=== PATIENT | female | born 1930 | race Caucasian/White ===

== ENCOUNTER → 2016-09-11 | Outpatient (CLI) | payer MEDICARE, OTHER ==
[~2016-09-11] MED LIST: ACETAMINOPHEN PO; ACTOS15 MG PO; ATACAND; BP MED; DIOVAN HCT 1601 EACH PO; ELIQUIS2.5 MG PO; KEFLEX500 M2 PO; LANTUS SOL100 UNIT/1 SUBQ; LANTUS100 U/ML; LOPRESSOR PO; METFORMIN; METFORMIN HCL500 M3 PO; MOBIC PO; NOVOLOG100 U/ML SUBQ; PACERONE PO; PROTONIX PO; VANTIN200 MG PO; ZOCOR20 MG PO; [UNRECOGNIZED DRUG - REMARK]
[2016-09-11 09:32] LABS: CALCIUM SERUM 9.1 mg/dL (8.4-10.2); CREATININE SERUM 0.8 mg/dL (0.6-1.4); GLOM FILT RATE Estimated 67.8 mL/min (>60); POTASSIUM 3.8 mmol/L (3.5-5.1)
== END | disposition home or self-care (01) ==
LOC: CLAB 08:08
PROVIDERS: Internal Medicine Endocrinology, Diabetes & Metabolism
DX: E11.65 Type 2 diabetes mellitus with hyperglycemia (principal); Z79.4 Long term (current) use of insulin
CPT/HCPCS: 36415; 80048; 83036

== ENCOUNTER 2016-11-10 22:47 | Inpatient (IN) | payer MEDICARE, BC ==
--- NOTE | ~2016-11-10 | DS ---
Unit #: [id number] #: [id number] Patient: YANNICK CLEARY [id number] [address] [address] [id number] [place] MR#: [id number] NAME: YANNICK CLEARY ROOM: 562 Age: 86 Sex: F Admission Date: 11/11/2016 : 1930 Discharge Date: Attending Physician: Daniella Padilla M.D. Primary Care Physician: Chris Glass M.D. DISCHARGE SUMMARY DISCHARGE DIAGNOSES 1. Hypoglycemia. 2. Diabetes mellitus type 2, uncontrolled. 3. Urinary tract infection with Gram-negative rods. 4. Hypertension. 5. Mild hyponatremia. 6. Toxic metabolic encephalopathy secondary to hypoglycemia: Not sure if she has history of dementia. CONSULTATION None. PROCEDURES None. LAB DATA Urine culture is growing Gram-negative rods. Glucose 197, creatinine 1.0, sodium 132, WBC 14.4. ALLERGIES Sulfa. DISCHARGE MEDICATIONS 1. Diovan with hydrochlorothiazide 160/125 mg p.o. daily. 2. Zocor 20 mg daily. 3. Lantus 10 units subcu at bedtime. 4. NovoLog sliding scale low dose. 5. Mobic 7.5 p.o. daily. 6. Protonix 40 daily. 7. Keflex 500 three times daily for three days. HOSPITALIZATION COURSE 86-year-old admitted because of low blood sugars. Hypoglycemia secondary to multiple medications and poor p.o. intake: Currently, sugars are high. I discontinued her metformin and Actos. Continue with Lantus and follow with PCP. Diabetes mellitus type 2, uncontrolled with hyperglycemia: Currently, she came with hypoglycemia on admission. Continue with Lantus. Urinary tract infection with Gram-negative rods: Patient received Rocephin. Continue with Keflex. Please note that patient has sulfa Unit #: [id number] #: [id number] Patient: YANNICK CLEARY allergy and I cannot give nitrofurantoin and ciprofloxacin because of resistance. Discharge home. Follow with family physician in one week time. Dictated by... Sho Mcclain/huong TD: 11/12/2016 11:32 JOB #: [id number] DISCHARGE SUMMARY Page 1 of 1 X Daniella Padilla MD DISCHARGE SUMMARY
--- NOTE | ~2016-11-10 | HP ---
Unit #: [id number] #: [id number] Patient: YANNICK CLEARY [id number] [address] [address] [id number] I MR#: [id number] NAME: YANNICK CLEARY ROOM: 562 Age: 86 Sex: F Admission Date: 11/11/2016 : 1930 Attending Physician: Daniella Padilla M.D. Primary Care Physician: Chris Glass M.D. HISTORY AND PHYSICAL CHIEF COMPLAINT Low blood sugar. HISTORY OF PRESENT ILLNESS This is an 86-year-old with history of diabetes admitted because of low blood sugar. Currently, she is confused and cannot confirm the onset of low blood sugar levels. I called the daughter, who is on her way coming to the hospital so I could not talk to her. It was severe. P.O. glucose en route was given by EMS. D50 was given in ER. Patient was complaining of nausea and vomiting and was not eating in ER. No fever. No chills. No abdominal pain. PAST MEDICAL HISTORY 1. History of diabetes mellitus type 2 on insulin. 2. Hypertension. 3. Coronary artery disease. 4. History of labyrinthitis. 5. History of cholecystectomy. 6. Bilateral cataract extraction. 7. Generalized osteoarthritis. ALLERGIES Sulfa. CURRENT HOME MEDICATIONS 1. NovoLog subcu. before meals and bedtime sliding scale. 2. Lantus 20 units at bedtime. 3. Mobic 7.5 p.o. daily. 4. Diovan with hydrochlorothiazide 160/12.5 one tablet daily. 5. Protonix 40 daily. 6. Zocor 20 daily. 7. Metformin 500 four times daily. 8. Actos 15 mg p.o. daily. SOCIAL HISTORY No smoking. No alcohol. No drugs. FAMILY HISTORY Positive for hypertension. REVIEW OF SYSTEMS Unobtainable because patient is confused. PHYSICAL EXAMINATION Unit #: [id number] #: [id number] Patient: YANNICK CLEARY VITAL SIGNS: Temperature 97.5, pulse 96, respirations 20, and blood pressure 159/77. GENERAL: 86-year-old lying in bed. Has memory loss and mild confusion. Alert. Oriented to self. HEENT: Pupils are equal and reactive to light and accommodation. Dry mucosa present. NECK: Supple. HEART: S1 and S2 heard. Regular rhythm. LUNGS: Clear to auscultation. No crackles. No rhonchi. ABDOMEN: Soft and nontender. Bowel sounds are present. EXTREMITIES: No pedal edema. SKIN: No rash. NEUROLOGICAL: Patient alert and confused. No focal neurological deficits. DIAGNOSTIC STUDIES LABORATORY: Glucose when she came in was 46 and currently it is 231. Urinalysis shows WBC 10-15, bacteria 4+. Creatinine 0.7 and sodium 134. Hemoglobin 13.7 and WBCs 17. ASSESSMENT AND PLAN This is an 86-year-old admitted because of low blood sugars. 1. Hypoglycemia likely secondary to her diabetic medications and poor p.o. intake. All of her medications have been discontinued. I am going to resume slowly her Lantus. 2. Urinary tract infection, cultures pending. Give Rocephin. 3. Diabetes mellitus type 2 with hypoglycemia. Currently hyper. I am going to start her on a sliding scale. 4. Hypertension, uncontrolled. I am going to add metoprolol for her because of discontinuation of hydrochlorothiazide for hyponatremia. 5. Mild hyponatremia, likely secondary to hydrochlorothiazide. Hold off for now. 6. Toxic metabolic encephalopathy with confusion. Not sure if she has dementia. I am going to talk to the family. Likely from urinary tract infection. Dictated by Sho Mcclain/garfield TD: 11/11/2016 12:32 JOB #: [id number] HISTORY AND PHYSICAL Page 1 of 1 X Daniella Padilla MD HISTORY AND PHYSICAL
[~2016-11-10 22:47] MED LIST changes: -ACETAMINOPHEN PO; -ACTOS15 MG PO; -DIOVAN HCT 1601 EACH PO; -ELIQUIS2.5 MG PO; -KEFLEX500 M2 PO; -LANTUS SOL100 UNIT/1 SUBQ; -LOPRESSOR PO; -METFORMIN HCL500 M3 PO; -MOBIC PO; -NOVOLOG100 U/ML SUBQ; -PACERONE PO; -PROTONIX PO; -VANTIN200 MG PO; -ZOCOR20 MG PO
[2016-11-11 00:16] LABS: BASOPHIL# 0.1 X10e3 (0-0.3); BASOPHIL% 0.6 % (0-2.5); EOSINOPHIL# 0.1 X10e3 (0-0.7); EOSINOPHIL% 0.6 % (0.0-7.0); HEMATOCRIT 41.4 % (35.0-45.0); HEMOGLOBIN 13.7 gm/dL (12.0-16.0); LYMPHOCYTE# 2.9 X10e3 (1.0-3.5); LYMPHOCYTE% 16.9 % (17.0-45.0); MEAN CELL VOLUME 92.4 FL (83-96); MEAN CORPUSCULAR HEMOGLOBIN 30.6 PG (28-34); MEAN CORPUSCULAR HGB CONC 33.1 g/dL (30-36); MEAN PLATELET VOLUME 9.5 FL (6.5-11.5); MONOCYTE# 0.8 X10e3 (0-1.0); MONOCYTE% 4.9 % (3.0-12.0); NEUTROPHIL# 13.1 X10e3 (1.5-7.1); PLATELET COUNT 339 X10e3 (140-420); RED BLOOD COUNT 4.47 X10e (3.90-5.30); RED CELL DISTRIBUTION WIDTH 13.7 % (11.0-15.5)
[2016-11-11 00:19] LABS: DIFF IND YES
[2016-11-11 00:29] LABS: URINE SOURCE CLEAN CATCH
[2016-11-11 00:32] LABS: URINE APPEARANCE CLEAR; URINE BILIRUBIN NEG (NEG); URINE BLOOD NEG (NEG); URINE COLOR YELLOW; URINE GLUCOSE 250 MG/DL (NEG); URINE KETONE NEG (NEG); URINE LEUKOCYTE ESTERASE 1+ (NEG); URINE NITRATE POS (NEG); URINE PH 6.5 (5-8); URINE PROTEIN NEG (NEG); URINE SPECIFIC GRAVITY 1.012 (1.003-1.035); URINE UROBILINOGEN 0.2 MG/DL (NEG)
[2016-11-11 00:34] LABS: CULTURE INDICATED? YES; U HYALINE CASTS AUWI 0-2 /[LPF]; URBCS1 AUWI 0-2 /[HPF] (0-2); URINE BACTERIA AUWI 4+ (NEGATIVE); URINE SQUAMOUS EPITHELIAL CELL OCC /[HPF]
[2016-11-11 00:50] LABS: ALBUMIN SERUM 4.3 g/dL (3.5-5.0); ALKALINE PHOSPHATASE 93 U/L (32-92); ALT (SGPT) 9 U/L (10-40); AST (SGOT) 20 U/L (10-42); BILIRUBIN,TOTAL 0.5 mg/dL (0.2-2.0); BLOOD UREA NITROGEN 23 mg/dL (9-23); BUN/CREATININE RATIO 32.85; CALCIUM SERUM 9.3 mg/dL (8.4-10.2); CARBON DIOXIDE 26 mmol/L (22-31); CHLORIDE 96 mmol/L (100-111); CREATININE SERUM 0.7 mg/dL (0.6-1.4); GLOM FILT RATE Estimated 79.6 mL/min (>60); GLUCOSE FASTING 65 mg/dL (70-110); POTASSIUM 3.5 mmol/L (3.5-5.1); PROTEIN TOTAL SERUM 7.5 g/dL (6.0-8.3); SODIUM 134 mmol/L (135-145)
[2016-11-11 00:52] LABS: BILIRUBIN, DIRECT <0.1 mg/dL (0.0-0.2); BILIRUBIN,INDIRECT 0.4 mg/dL (0.0-0.9)
[2016-11-11 00:57] LABS: PLATELET ESTIMATE NORMAL (NORMAL)
[2016-11-11] MEDS ORDERED: NOVOLOG100 U/ML SUBQ (01:18)
[2016-11-11] MEDS ORDERED: MOBIC PO (01:18)
[2016-11-11] MEDS ORDERED: PROTONIX PO (01:18)
[2016-11-11] MEDS ORDERED: DIOVAN HCT 1601 EACH PO (01:18)
[2016-11-11] MEDS ORDERED: LANTUS SOL100 UNIT/1 SUBQ (01:18)
[2016-11-11] MEDS ORDERED: ZOCOR20 MG PO (01:19)
[2016-11-11] MEDS ORDERED: METFORMIN HCL500 M3 PO (01:19)
[2016-11-11] MEDS ORDERED: ACTOS15 MG PO (01:20)
[2016-11-11 10:43] LABS: HEMATOCRIT 36.7 % (35.0-45.0); HEMOGLOBIN 12.2 gm/dL (12.0-16.0); MEAN CELL VOLUME 91.1 FL (83-96); MEAN CORPUSCULAR HEMOGLOBIN 30.2 PG (28-34); MEAN CORPUSCULAR HGB CONC 33.2 g/dL (30-36); MEAN PLATELET VOLUME 8.7 FL (6.5-11.5); RED BLOOD COUNT 4.03 X10e (3.90-5.30); RED CELL DISTRIBUTION WIDTH 13.2 % (11.0-15.5); WHITE BLOOD COUNT 14.4 X10e3 (4.0-10.5)
[2016-11-11 11:09] LABS: GLOM FILT RATE Estimated 51.7 mL/min (>60); POTASSIUM 4.1 mmol/L (3.5-5.1)
[2016-11-12] MEDS ORDERED: KEFLEX500 M2 PO (12:07)
== END 2016-11-12 13:30 | disposition home or self-care (01) | DRG 638 ==
LOC: CED 22:47 → C5B 11-11 01:10 → CED 11-11 03:12 → C5B 11-11 07:24
PROVIDERS: Emergency Medicine
DX: E11.649 Type 2 diabetes mellitus with hypoglycemia without coma (principal); N39.0 Urinary tract infection, site not specified; G92 Toxic encephalopathy; E11.65 Type 2 diabetes mellitus with hyperglycemia; E87.1 Hypo-osmolality and hyponatremia; Z79.4 Long term (current) use of insulin; B96.20 Unspecified Escherichia coli [E. coli] as the cause of diseases classified elsewhere; Z90.49 Acquired absence of other specified parts of digestive tract; Z90.710 Acquired absence of both cervix and uterus; Z98.42 Cataract extraction status, left eye; Z98.41 Cataract extraction status, right eye; M19.90 Unspecified osteoarthritis, unspecified site; Z88.2 Allergy status to sulfonamides; Z82.49 Family history of ischemic heart disease and other diseases of the circulatory system; I25.10 Atherosclerotic heart disease of native coronary artery without angina pectoris
CPT/HCPCS: 80048; 80076; 81003; 82947; 85025; 85027; 87086; 87088; 87186; 96374; 96375; 97162; 99285; G8978-GP; G8979-GP; J0696; J1815; J2405

== ENCOUNTER 2016-12-12 05:38 | Inpatient (IN) | payer MEDICARE, BC ==
--- NOTE | ~2016-12-12 | EKG ---
PATIENT: YANNICK CLEARY UNIT #: [id number] Ventricular Rate: 82 BPM Atrial Rate: 82 BPM P-R Interval: 230 ms QRS Duration: 92 ms Q-T Interval: 378 ms QTC Calculation(Bezet): 441 ms P [place]: 74 degrees Calculated R [place]: -25 degrees Calculated T [place]: 86 degrees Diagnosis Line: Sinus rhythm with 1st degree A-V block Diagnosis Line: Low voltage QRS Diagnosis Line: Borderline ECG Diagnosis Line: No previous ECGs available Diagnosis Line: Confirmed by SYDNI BARRETT MD ([id number]) on Diagnosis Line: 12/13/2016 4:02:38 PM INTERPRETING MD: NENA ELAINE
--- NOTE | ~2016-12-12 | CT95 ---
[facility]. [facility] A Service of [facility] & [facility] RADIOLOGY TEXT RESULTS PATIENT: YANNICK CLEARY LOCATION: [facility] 573-01 : 32 UNIT #: [id number] AGE: [address]: Roz Jenkins MD SEX: F ORDER DR: [id number] [facility] [address] [place], [place] [address] [id number] I MR#: [id number] Acc #: [id number] NAME: YANNICK CLEARY : 1930 SEX: F STUDY DATE/TIME: 12/15/2016 11:11 UNIT: [facility] ROOM: [facility] STUDY DESCRIPTION: CT Lower Ext Rt Wo Cont Attending Physician: Roz Jenkins M.D. Ordering Physician: Roz Jenkins M.D. Primary Care Physician: Chris Glass M.D. MEDICAL IMAGING REPORT This report is preliminary unless electronic signature is present EXAM CT right foot without contrast, 12/15/2016. HISTORY 86-year-old female with right ankle pain, status post fall 12/12/2016. COMPARISON Right ankle x-rays, 12/14/2016. TECHNIQUE Helical scan performed through the right ankle without IV contrast. Coronal and sagittal reformatted images. This CT exam was performed with one or more of the following radiation dose reduction techniques: automatic exposure control, adjustment of mA and/or kV according to patient size, and iterative reconstruction. FINDINGS Diffuse bony demineralization is noted. No evidence of a displaced fracture or dislocation. Talar dome is intact. Ankle mortise is symmetric. There is some mild ossification noted in the posterior tibial tendon and ligamentous structures of the hindfoot. Mild ossification at the Achilles tendon insertion. Vascular calcifications are present. No significant ankle effusion. Soft tissues appear unremarkable. Flexor and extensor tendons are otherwise unremarkable. IMPRESSION 1. Osteopenia. No evidence of a displaced fracture or dislocation. 2. 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 Mild ossification in the ligamentous structures. Dictated by... Theo Ng M.D. [facility] A Service of [facility] & [facility] RADIOLOGY TEXT RESULTS PATIENT: YANNICK CLEARY LOCATION: [facility] 573-01 : 32 UNIT #: [id number] AGE: [address]: Roz Jenkins MD SEX: F ORDER DR: THIS IS AN ELECTRONICALLY VERIFIED REPORT Theo Ng M.D. at 12/16/2016 11:16 AM GABRIELLA/tori TD: 12/15/2016 16:50 JOB #: [id number] MEDICAL IMAGING REPORT Page 1 of 1 COPY
--- NOTE | ~2016-12-12 | HP ---
Unit #: [id number] #: [id number] Patient: YANNICK CLEARY [id number] [address] [address] [id number] I MR#: [id number] NAME: YANNICK CLEARY ROOM: 573 Age: 86 Sex: F Admission Date: 12/12/2016 : 1930 Attending Physician: Tami Goodman M.D. Primary Care Physician: Chris Glass M.D. HISTORY AND PHYSICAL REASON FOR ADMISSION Falls at home, UTI, increased confusion. HISTORY OF PRESENT ILLNESS The patient is a very pleasant 86-year-old female recently admitted to our hospital in the early part of November 2016 secondary to low blood sugar. She at the present time has no family members present at bedside, but she tells me that she had an awkward fall at home. She also tells me that she felt very weak over the past several days. She herself is not the best historian. Per ER reports, there are notes when patient had decreased p.o. intake, as well as increased dizziness at home. While she was evaluated in the emergency room, she was noted to have an abnormal urinalysis, hyponatremia, and hypokalemia, and thus the decision was made for evaluation, for IV antibiotics, electrolyte replacement, and ongoing care. PAST MEDICAL HISTORY 1. Diabetes with insulin dependence. 2. Hypertension. 3. Prior history of coronary artery disease, details unclear. 4. Cholecystectomy. 5. Cataract extraction. 6. Generalized osteoarthritis. ALLERGIES Sulfa. HOME MEDICATIONS 1. NovoLog. 2. Lantus. 3. Mobic. 4. Diovan. 5. Protonix. 6. Zocor. 7. Keflex recently prescribed by primary care physician. SOCIAL HISTORY No alcohol, no tobacco, and no illicit drug use. FAMILY HISTORY Reviewed and noncontributory or non-pertinent given the advanced age of this individual. Unit #: [id number] #: [id number] Patient: YANNICK CLEARY REVIEW OF SYSTEMS Please see History of Present Illness. Limited secondary to current state. PHYSICAL EXAMINATION VITAL SIGNS: Temperature on admission 97.8, pulse 80, respiratory rate 17, and blood pressure 177/72. GENERAL APPEARANCE: An 86-year-old pleasant female lying comfortably in no acute distress. HEAD: Atraumatic and normocephalic. EARS: Tympanic membranes do not reveal any erythema or injection. NECK: Supple. CARDIOVASCULAR: S1 and S2 without murmur. RESPIRATORY: Clear. GASTROINTESTINAL/ABDOMEN: Distention noted but nontender. LOWER EXTREMITIES: No evidence of any lower extremity edema and no calf tenderness. NEUROLOGIC: Alert and oriented x2 currently. PSYCHIATRIC: Patient demonstrates normal mood and affect, and she is appropriate. DIAGNOSTIC STUDIES INITIAL LABORATORY PERFORMED IN ER: BMP with a potassium of 2.8, sodium 128, GFR 58, and blood sugar 275. Normal LFTs. Positive urinalysis. Initial cardiac enzyme set negative. CBC shows a hemoglobin of 13.1 and white count 11.4. INITIAL IMPRESSION 1. Urinary tract infection. 2. Weakness. 3. Hypokalemia. 4. Mild hyponatremia. 5. Diabetes with insulin dependence. 6. Chronic osteoarthritis. 7. Prior history of hypertension. PLAN Admission. Replete electrolytes. IV Rocephin. Await final urine culture. PT/OT evaluation. CT head performed in the ER negative for acute process. Routine labs. Symptom management. After PT/OT evaluation is completed, then we will plan for the disposition including possible rehab and/or transition back home once final culture results are ascertained. Routine Accu-Cheks will be obtained. NovoLog low-dose sliding scale. Her Diovan, as well as Mobic will be discontinued secondary to mildly decreased GFR. She will be transitioned to Norvasc p.o., and her Mobic will be discontinued altogether. Further hospital course to follow. The patient appears to be Full Code as per previous records, but again, I do not have any family members present at bedside to verify appropriate code status with. Dictated by Sho Ballard/peter TD: 12/12/2016 14:17 JOB #: [id number] Unit #: [id number] #: [id number] Patient: YANNICK CLEARY HISTORY AND PHYSICAL Page 1 of 1 X Tami Goodman MD HISTORY AND PHYSICAL
--- NOTE | ~2016-12-12 | EKG ---
PATIENT: YANNICK CLEARY UNIT #: [id number] Ventricular Rate: 87 BPM Atrial Rate: 87 BPM P-R Interval: 216 ms QRS Duration: 86 ms Q-T Interval: 348 ms QTC Calculation(Bezet): 418 ms P [place]: 76 degrees Calculated R [place]: -23 degrees Calculated T [place]: 60 degrees Diagnosis Line: Sinus rhythm with 1st degree A-V block Diagnosis Line: Abnormal ECG Diagnosis Line: When compared with ECG of 13-DEC-2016 09:33, Diagnosis Line: Sinus rhythm has replaced Atrial fibrillation Diagnosis Line: Vent. rate has decreased BY 49 BPM Diagnosis Line: Non-specific change in ST segment in Lateral leads Diagnosis Line: Confirmed by KATHRINE COX MD ([id number]) on 12/13/2016 Diagnosis Line: 6:21:47 PM INTERPRETING MD: BROOKE ELAINE
--- NOTE | ~2016-12-12 | EKG ---
PATIENT: YANNICK CLEARY UNIT #: [id number] Ventricular Rate: 78 BPM Atrial Rate: 78 BPM P-R Interval: 232 ms QRS Duration: 82 ms Q-T Interval: 390 ms QTC Calculation(Bezet): 444 ms P [place]: 83 degrees Calculated R [place]: -23 degrees Calculated T [place]: 19 degrees Diagnosis Line: Sinus rhythm with 1st degree A-V block with Diagnosis Line: Premature supraventricular complexes Diagnosis Line: Otherwise normal ECG Diagnosis Line: When compared with ECG of 14-DEC-2016 07:01, Diagnosis Line: Premature supraventricular complexes are now Diagnosis Line: Present Diagnosis Line: Confirmed by KATHRNIE COX MD ([id number]) on 12/16/2016 Diagnosis Line: 10:54:45 AM INTERPRETING MD: BROOKE ELAINE
--- NOTE | ~2016-12-12 | EKG ---
PATIENT: YANNICK CLEARY UNIT #: [id number] Ventricular Rate: 78 BPM Atrial Rate: 78 BPM P-R Interval: 216 ms QRS Duration: 90 ms Q-T Interval: 386 ms QTC Calculation(Bezet): 440 ms P [place]: 88 degrees Calculated R [place]: -15 degrees Calculated T [place]: 62 degrees Diagnosis Line: Sinus rhythm with 1st degree A-V block Diagnosis Line: Otherwise normal ECG Diagnosis Line: When compared with ECG of 13-DEC-2016 14:29, Diagnosis Line: No significant change was found Diagnosis Line: Confirmed by GARCÍA ELAINE, LAVERN ([id number]) on Diagnosis Line: 12/15/2016 8:53:59 AM INTERPRETING MD: CARMELINA
--- NOTE | ~2016-12-12 | CR7 ---
[facility] A Service of [facility] & [facility] RADIOLOGY TEXT RESULTS PATIENT: YANNICK CLEARY LOCATION: [facility] 573-01 : 32 UNIT #: [id number] AGE: [address]: Roz Jenkins MD SEX: F ORDER DR: [id number] [facility] [address] [place], [place] [address] [id number] I MR#: [id number] Acc #: [id number] NAME: YANNICK CLEARY : 1930 SEX: F STUDY DATE/TIME: 12/15/2016 14:27 UNIT: [facility] ROOM: [facility] STUDY DESCRIPTION: CR Abdomen Single AP View Attending Physician: Roz Jenkins M.D. Ordering Physician: Melisa Esqueda A.P.R.N. Primary Care Physician: Chris Glass M.D. MEDICAL IMAGING REPORT This report is preliminary unless electronic signature is present EXAM AP abdomen INDICATIONS Right upper quadrant abdominal pain today. COMPARISON No comparisons. FINDINGS There is a nonobstructed bowel gas pattern. There is gas and stool in the colon. Degenerative changes of the lumbar spine. IMPRESSION Gas and stool throughout the colon, but no evidence for bowel obstruction. Dictated by... Grey Keith M.D. THIS IS AN ELECTRONICALLY VERIFIED REPORT Grey Keith M.D. at 12/15/2016 5:05 PM GOVIND/saima TD: 12/15/2016 16:21 JOB #: [id number] MEDICAL IMAGING REPORT Page 1 of 1 COPY
--- NOTE | ~2016-12-12 | CR21 ---
[facility] A Service of [facility] & [facility] RADIOLOGY TEXT RESULTS PATIENT: YANNICK CLEARY LOCATION: [facility] 573-01 : 32 UNIT #: [id number] AGE: [address]: Tami Goodman MD SEX: F ORDER DR: [id number] [facility] [address] [place], [place] [address] [id number] I MR#: [id number] Acc #: [id number] NAME: YANNICK CLEARY : 1930 SEX: F STUDY DATE/TIME: 12/14/2016 11:54 UNIT: [facility] ROOM: [facility] STUDY DESCRIPTION: CR Ankle Min 3 Views Rt Attending Physician: Tami Goodman M.D. Ordering Physician: Josseline Grace A.P.R.N. Primary Care Physician: Chris Glass M.D. MEDICAL IMAGING REPORT This report is preliminary unless electronic signature is present EXAM Right ankle 3 views, 12/14/2016 11:54 hours CLINICAL HISTORY 86-year-old woman complaining of ankle pain today. No reported injury. COMPARISON None FINDINGS AP, lateral and oblique views are performed. There is some tubing overlying the mid calf region. The bones are osteopenic with no definite acute fracture. There are small ossicles adjacent to the distal tip of the medial and lateral malleolus. There is diffuse subcutaneous edema. IMPRESSION Diffuse subcutaneous edema with osteopenia and small ossicles adjacent to the medial and lateral malleoli. There is no definite fracture or dislocation. Dictated by... Cari Pate M.D. THIS IS AN ELECTRONICALLY VERIFIED REPORT Cari Pate M.D. at 12/14/2016 2:30 PM Suraj TD: 12/14/2016 12:59 JOB #: [id number] MEDICAL IMAGING REPORT Page 1 of 1 COPY
--- NOTE | ~2016-12-12 | CR72 ---
[facility] A Service of [facility] & [facility] RADIOLOGY TEXT RESULTS PATIENT: YANNICK CLEARY LOCATION: [facility] 573-01 : 32 UNIT #: [id number] AGE: [address]: Tami Goodman MD SEX: F ORDER DR: [id number] [facility] [address] [place], [place] [address] [id number] I MR#: [id number] Acc #: [id number] NAME: YANNICK CLEARY : 1930 SEX: F STUDY DATE/TIME: 12/12/2016 6:57 UNIT: [facility] ROOM: [facility] STUDY DESCRIPTION: CR Chest Single View Portable Attending Physician: Tami Goodman M.D. Ordering Physician: Alec Mitchell D.O. Primary Care Physician: Chris Glass M.D. MEDICAL IMAGING REPORT This report is preliminary unless electronic signature is present EXAM Portable chest HISTORY Shortness of breath, dizziness and weakness onset this morning. TECHNIQUE Single AP view of the chest was obtained. FINDINGS Postoperative changes are seen at the right shoulder with degenerative changes noted at both shoulders. Heart size is normal. No abnormal mediastinal widening is seen. Both lungs are fully expanded and clear with normal vascular markings. No pleural fluid seen. IMPRESSION No active disease. Both lungs fully expanded and clear. Dictated by... Albert Villalta M.D. THIS IS AN ELECTRONICALLY VERIFIED REPORT Albert Villalta M.D. at 12/13/2016 4:55 PM SHON/vineet TD: 12/12/2016 14:02 JOB #: [id number] MEDICAL IMAGING REPORT Page 1 of 1 COPY
--- NOTE | ~2016-12-12 | DS ---
Unit #: [id number] #: [id number] Patient: YANNICK CLEARY [id number] [address] [place], [place] [address] [id number] I MR#: [id number] NAME: YANNICK CLEARY ROOM: 573 Age: 86 Sex: F Admission Date: 12/12/2016 : 1930 Discharge Date: 12/16/2016 Attending Physician: Roz Jenkins M.D. Primary Care Physician: Chris Glass M.D. DISCHARGE SUMMARY FINAL DIAGNOSES 1. Urinary tract infection, Escherichia coli. 2. Toxic metabolic encephalopathy. 3. Fall with contusion of the right ankle with no fracture. SECONDARY DIAGNOSES 1. Debility. 2. Hypertension. 3. Hyperlipidemia. 4. Mild mitral regurgitation. 5. Mzpy-qj-oplaxrvs tricuspid regurgitation. CONSULTS 1. Dr. Chaudhary, Cardiology. 2. Dr. Dowd, Orthopedics. HOSPITAL COURSE The patient is a pleasant 86-year-old female who basically fell at home, presented to ER with a mechanical fall. Had some dull chest pain, some palpitations, found to have gram-negative UTI. Cardiology was consulted for new-onset atrial fibrillation. She had a 2D echo and is currently anticoagulated with Eliquis 2.5 mg p.o. b.i.d. Initially, the plan was for patient to go to subacute rehab; however, patient vehemently detest going to subacute rehab. Right ankle pain: X-rays showed no fracture. Orthopedics was consulted and there was no surgical intervention deemed necessary. She was evaluated by physical therapy and deemed appropriate for discharge. She will be discharged home with home health. DISCHARGE MEDICATIONS Medications on discharge include: 1. Amiodarone 200 mg p.o. b.i.d. for five days, then 200 mg p.o. daily. 2. Tylenol 650 mg p.o. q.6 hours over the counter. 3. Eliquis 2.5 mg p.o. twice daily. 4. Lopressor 25 mg p.o. b.i.d. 5. Vantin 200 mg p.o. b.i.d. for five days. 6. Protonix 40 mg p.o. daily. 7. Mobic was discontinued. 8. Lantus 10 units subcutaneous at bedtime. 9. NovoLog sliding scale per home dose. 10. Simvastatin 20 mg p.o. at bedtime. FOLLOWUP Unit #: [id number] #: [id number] Patient: YANNICK CLEARY 1. She is scheduled to follow up with PCP in next three to five days. 2. DME form has been filled out for a walker. Time spent coordinating discharge is about 35 minutes. Dictated by... Sho Bryant TD: 12/16/2016 13:30 JOB #: [id number] DISCHARGE SUMMARY Page 1 of 1 X Chris Mccoy MD X DISCHARGE SUMMARY
--- NOTE | ~2016-12-12 | US85 ---
[facility] A Service of [facility] & [facility] RADIOLOGY TEXT RESULTS PATIENT: YANNICK CLEARY LOCATION: [facility] 573-01 : 32 UNIT #: [id number] AGE: [address]: Roz Jenkins MD SEX: F ORDER DR: [id number] [facility] [address] [place], [place] [address] [id number] I MR#: [id number] Acc #: [id number] NAME: YANNICK CLEARY : 1930 SEX: F STUDY DATE/TIME: 12/14/2016 13:57 UNIT: [facility] ROOM: [facility] STUDY DESCRIPTION: LE Veins Unilat or Ltd Stdy Attending Physician: Tami Goodman M.D. Ordering Physician: Melisa Esqueda A.P.R.N. Primary Care Physician: Chris Glass M.D. MEDICAL IMAGING REPORT This report is preliminary unless electronic signature is present EXAM Right lower extremity venous duplex 12/14/2016 HISTORY Right lower extremity edema for 3 days. History of left lower extremity DVT 3 years ago. Evaluate for deep vein thrombosis. TECHNIQUE Venous ultrasound examination of the right lower extremity was performed using grayscale, spectral Doppler and color flow Doppler imaging. FINDINGS The examination is negative. There is no evidence of right lower extremity deep venous thrombus from the groin to the lower calf. Visualized greater saphenous vein is also patent. IMPRESSION Negative examination. No evidence of right lower extremity deep venous thrombosis. Dictated by... Lorenzo Calvin M.D. THIS IS AN ELECTRONICALLY VERIFIED REPORT Lorenzo Calvin M.D. at 12/15/2016 2:24 PM MITESH/saima TD: 12/14/2016 14:38 JOB #: [id number] MEDICAL IMAGING REPORT Page 1 of 1 COPY
--- NOTE | ~2016-12-12 | CT71 ---
[facility] A Service of [facility] RADIOLOGY TEXT RESULTS PATIENT: YANNICK CLEARY LOCATION: [facility] 5708-03 : 32 UNIT #: [id number] AGE: [address]: Tami Goodman MD SEX: F ORDER DR: [id number] [facility] [address] [facility]. [place], [place] [address] [id number] MR#: [id number] #: [id number] NAME: YANNICK CLEARY : 1930 SEX: F STUDY DATE/TIME: 12/12/2016 7:46 UNIT: [facility] ROOM: [facility] STUDY DESCRIPTION: CT Head Wo Contrast Attending Physician: Tami Goodman M.D. Ordering Physician: Alec Mitchell D.O. Primary Care Physician: Chris Glass M.D. MEDICAL IMAGING REPORT This report is preliminary unless electronic signature is present EXAM Head CT without contrast, 12/12/2016. HISTORY Dizziness beginning this morning. No loss of consciousness, status post fall, but did not hit head. TECHNIQUE This CT exam was performed with one or more of the following radiation dose reduction techniques: automatic exposure control, adjustment of mA and/or kV according to patient size, and iterative reconstruction. FINDINGS Axial images of the brain obtained without contrast show generalized atrophy. There are chronic ischemic changes seen around the ventricles. There is no evidence of mass effect, hemorrhage, or edema and no midline shift is seen. No acute changes are noted. IMPRESSION Atrophy with chronic ischemic changes. No acute changes are seen. Dictated by... Lorenzo Calvin M.D. THIS IS AN ELECTRONICALLY VERIFIED REPORT Lorenzo Calvin M.D. at 12/13/2016 2:10 PM MITESH/david TD: 12/12/2016 14:10 JOB #: [id number] [facility] A Service [facility] RADIOLOGY TEXT RESULTS PATIENT: YANNICK CLEARY LOCATION: [facility] 5708-03 : 32 UNIT #: [id number] AGE: [address]: Tami Goodman MD SEX: F ORDER DR: MEDICAL IMAGING REPORT Page 1 of 1 COPY
--- NOTE | ~2016-12-12 | EKG ---
PATIENT: YANNICK CLEARY UNIT #: [id number] Ventricular Rate: 136 BPM Atrial Rate: 159 BPM QRS Duration: 84 ms Q-T Interval: 296 ms QTC Calculation(Bezet): 445 ms Calculated R Rainier: -10 degrees Calculated T Rainier: 88 degrees Diagnosis Line: Atrial fibrillation with rapid ventricular Diagnosis Line: response Diagnosis Line: Low voltage QRS Diagnosis Line: Abnormal ECG Diagnosis Line: When compared with ECG of 12-DEC-2016 06:03, Diagnosis Line: (unconfirmed) Diagnosis Line: Atrial fibrillation has replaced Sinus rhythm Diagnosis Line: Vent. rate has increased BY 54 BPM Diagnosis Line: Non-specific change in ST segment in Lateral leads Diagnosis Line: Confirmed by LAVERN MARIANO MD ([id number]) on Diagnosis Line: 12/13/2016 4:25:56 PM INTERPRETING MD: CARMELINA
--- NOTE | ~2016-12-12 | CO ---
Unit #: [id number] #: [id number] Patient: YANNICK CLEARY [id number] [facility] [address]. [place], [place] [address] [id number] MR#: [id number] NAME: YANNICK CLEARY ROOM: 573 Age: 86 Sex: F Admission Date: 12/12/2016 : 1930 Attending Physician: Roz Jenkins M.D. Primary Care Physician: Chris Glass M.D. Consultation Date: 12/14/2016 CONSULTATION REPORT HISTORY OF PRESENT ILLNESS Ms. Schultz is a pleasant 86-year-old lady we have been asked to see. We have been asked to see her for right ankle pain. On asking her how long it has bothered her, she is not sure. She is admitted to the hospital for what sounds like a syncopal episode and a fall but she states that her ankle was hurting before she fell. She is not sure if the duration of pain has been a week, a month or longer. She has had no fevers or chills. She does not report any injury that she can remember and has not really noted any swelling. The pain seems to be mobilized, according to her, around the ankle joint. PAST MEDICAL HISTORY Diabetes, hypertension, coronary artery disease. PAST SURGICAL HISTORY Cholecystectomy and cataract surgery. SOCIAL HISTORY She lives at home. She denies the use of alcohol. ALLERGIES Sulfa. MEDICATIONS AT HOME 1. Mobic. 2. Lantus. 3. NovoLog. 4. Protonix. 5. Diovan. 6. Zocor. 7. She is currently on Keflex. REVIEW OF SYSTEMS The patient denies any headaches, blurred vision. She denies shortness of breath. She denies chest pain. She denies abdominal pain or nausea, vomiting or diarrhea. Orthopaedically, she complains of generalized arthritis and her current right ankle pain. The rest of her review of systems was difficult to comer from her slight confusion. PHYSICAL EXAMINATION GENERAL APPEARANCE: Today, reveals that she is alert, awake and answers questions appropriately, although her memory is poor. VITAL SIGNS: Blood pressure 167/67. Pulse 74. Heart rate 82. EXTREMITIES: Exam of her right ankle reveals that she has no redness, no Unit #: [id number] #: [id number] Patient: YANNICK CLEARY obvious swelling. Range of motion of the ankle is painful. Sensation is intact. Pulses are decreased and the range of motion is dorsiflexion of 10, plantar flexion of 20 to 25. IMPRESSION She has right ankle pain and I will review her x-rays. If they appear normal, she may need a serum uric acid level, although she denies knowing if she has ever had gout. Dictated by... John Dowd M.D. NAGI/juan luis TD: 12/15/2016 09:35 JOB #: [id number] CONSULTATION REPORT Page 1 of 1 X John Dowd MD X CONSULTATION REPORT
--- NOTE | ~2016-12-12 | CO ---
Unit #: [id number] #: [id number] Patient: YANNICK CLEARY [id number] [address] [place], [place] [address] [id number] MR#: [id number] NAME: YANNICK CLEARY ROOM: 573 Age: 86 Sex: F Admission Date: 12/12/2016 : 1930 Attending Physician: Tami Goodman M.D. Primary Care Physician: Chris Glass M.D. Consultation Date: 12/13/2016 CONSULTATION REPORT REASON FOR CONSULTATION New onset atrial fibrillation. HISTORY OF PRESENT ILLNESS The patient is an 86-year-old female who does not have a facialist. She reports that she has not even seen her primary care provider in three to four years. She denies ever having a myocardial infarction or history of atrial fibrillation. For her past medical history she endorses hypertension, hyperlipidemia, diabetes, left leg DVT three years ago, rare alcohol use, reformed tobaccoism and occasional dizziness. The patient presented to the emergency department after a mechanical fall. The patient states that she was walking into her kitchen and she fell. She denied having chest pain, palpitations, shortness of breath, loss of bowel or bladder control or consciousness. She states that her legs felt weak and that she was unable to get up. EMS was called at that time. Again, at the time of her fall she states that she was not dizzy. However, she has had some issues with dizziness in the past. While in the emergency department she was noted to have an abnormal urinalysis, hypernatremia, and hypokalemia. The patient was admitted for IV antibiotics and further treatment. Today the patient was noted to go into rapid atrial fibrillation. The patient was asymptomatic. EKG did confirm atrial fibrillation with a rate in the 140s. The patient denied palpitations, shortness of breath and her blood pressure was stable. Cardiology was consulted for further workup. PAST MEDICAL HISTORY 1. Per prior history and physical, it states that there is coronary artery disease; however, details are unclear. The patient denies having any history of coronary artery disease. 2. Hypertension. 3. Hyperlipidemia. 4. Diabetes. 5. Left leg DVT three years ago. 6. Dizziness. PAST SURGICAL HISTORY 1. Cholecystectomy. 2. Cataract extraction. SOCIAL HISTORY The patient informs that she quit smoking over 30 years ago. She rarely Unit #: [id number] #: [id number] Patient: YANNICK CLEARY drinks alcohol. She has one of her children live with her. She states she typically is independent in her activities of daily living. FAMILY HISTORY The patient reports that her mother had a myocardial infarction and in her late 80s. ALLERGIES Sulfa. HOME MEDICATIONS 1. NovoLog sliding scale insulin before meals and at bedtime. 2. Lantus SoloSTAR 10 units subcutaneous at night. 3. Mobic 7.5 mg p.o. daily. 4. Diovan 160/12.5 mg 1 tablet p.o. daily. 5. Protonix 40 mg p.o. daily. 6. Zocor 20 mg p.o. daily. 7. Keflex 500 mg p.o. t.i.d. This is a new prescription. REVIEW OF SYSTEMS A 10-point review of systems was done and is considered otherwise negative unless indicated in the history of present illness. PHYSICAL EXAMINATION GENERAL: The patient is awake and alert, in no acute distress. VITALS: Temperature 98.6, heart rate 81, respiratory rate 18, blood pressure 154/91. She is oxygenating 96%. HEENT: Head is atraumatic, normocephalic. Pupils equal and reactive. Extraocular movements are intact. No drainage from ears or nares. NECK: Supple. Trachea midline. Normal carotid upstrokes. No thyromegaly or lymphadenopathy is appreciated. CHEST: Lungs are clear to auscultation bilaterally. No wheezes rales or rhonchi. HEART: S1 and S2, irregular. No murmurs, rubs or gallops appreciated. ABDOMEN: Soft, nontender and nondistended. Bowel sounds are positive in all four quadrants. No hepatosplenomegaly is appreciated. SKIN: Appears to be warm, dry and intact. EXTREMITIES: No clubbing, edema or cyanosis. NEUROLOGIC: The patient is alert and oriented times four. She is pleasant and conversant. No focal deficits. DIAGNOSTIC STUDIES LABORATORY: White blood cell count 12, hemoglobin 12.3, hematocrit 37.2, platelets 352, sodium 133, potassium 3.8, chloride 98, CO2 24, BUN 17, creatinine 0.8, glucose 238, TSH 1.87. Urine culture shows gram negative rods. ASSESSMENT 1. New onset atrial fibrillation with RVR. 2. Gram negative rods. 3. Hypertension. 4. Hyperlipidemia. 5. Reformed tobaccoism. PLAN At this time, the patient will be given metoprolol 25 mg p.o. b.i.d., first dose now. She will also be stated on an amiodarone drip. An EKG will be obtained in the morning. A two-dimensional echocardiogram will be Unit #: [id number] #: [id number] Patient: YANNICK CLEARY ordered for now. The patient will also need a CBC, BMP and mag in the morning. Will check orthostatics and vital signs daily. area loss prevention manager will find out the cost of Eliquis for the patient. Currently the patient will be started on Lovenox 1 mg/kg subcutaneous b.i.d. Dictated by... Josseline Grace A.P.R.N. for Rupinder Mendez M.D. AM/miguelangel TD: 12/13/2016 12:36 JOB #: [id number] CONSULTATION REPORT Page 1 of 1 X Josseline Grace APRN X CONSULTATION REPORT
[~2016-12-12 05:38] MED LIST changes: +ACTOS15 MG PO; +DIOVAN HCT 1601 EACH PO; +KEFLEX500 M2 PO; +LANTUS SOL100 UNIT/1 SUBQ; +METFORMIN HCL500 M3 PO; +MOBIC PO; +NOVOLOG100 U/ML SUBQ; +PROTONIX PO; +ZOCOR20 MG PO
[2016-12-12 07:23] LABS: BASOPHIL# 0.1 X10e3 (0-0.3); BASOPHIL% 1.2 % (0-2.5); EOSINOPHIL# 0.1 X10e3 (0-0.7); EOSINOPHIL% 1.2 % (0.0-7.0); HEMATOCRIT 39.3 % (35.0-45.0); HEMOGLOBIN 13.1 gm/dL (12.0-16.0); LYMPHOCYTE# 2.4 X10e3 (1.0-3.5); LYMPHOCYTE% 21.3 % (17.0-45.0); MEAN CELL VOLUME 89.3 FL (83-96); MEAN CORPUSCULAR HEMOGLOBIN 29.9 PG (28-34); MEAN CORPUSCULAR HGB CONC 33.5 g/dL (30-36); MEAN PLATELET VOLUME 8.5 FL (6.5-11.5); MONOCYTE# 0.7 X10e3 (0-1.0); MONOCYTE% 6.5 % (3.0-12.0); NEUTROPHIL% 69.8 % (40-75); PLATELET COUNT 288 X10e3 (140-420); RED CELL DISTRIBUTION WIDTH 13.1 % (11.0-15.5); WHITE BLOOD COUNT 11.4 X10e3 (4.0-10.5)
[2016-12-12 07:25] LABS: DIFF IND NO
[2016-12-12 07:37] LABS: PARTIAL THROMBOPLASTIN TIME 24.5 SECONDS (23.5-31.3)
[2016-12-12 07:39] LABS: PROTHROMBIN TIME (PATIENT) 10.7 SECONDS (10.0-11.7)
[2016-12-12 07:57] LABS: URINE APPEARANCE CLEAR; URINE BILIRUBIN NEG (NEG); URINE BLOOD NEG (NEG); URINE COLOR YELLOW; URINE GLUCOSE 500 MG/DL (NEG); URINE KETONE 2+ (NEG); URINE LEUKOCYTE ESTERASE TRACE (NEG); URINE NITRATE POS (NEG); URINE PH 7.5 (5-8); URINE PROTEIN NEG (NEG); URINE UROBILINOGEN 0.2 MG/DL (NEG)
[2016-12-12 08:00] LABS: CULTURE INDICATED? YES; U HYALINE CASTS AUWI 0-2 /[LPF]; URBCS1 AUWI 0-2 /[HPF] (0-2); URINE BACTERIA AUWI 4+ (NEGATIVE); URINE SQUAMOUS EPITHELIAL CELL OCC /[HPF]
[2016-12-12 08:01] LABS: ALBUMIN SERUM 3.7 g/dL (3.5-5.0); BILIRUBIN, DIRECT 0.2 mg/dL (0.0-0.2); BILIRUBIN,INDIRECT 0.8 mg/dL (0.0-0.9); BUN/CREATININE RATIO 18.88; CALCIUM SERUM 8.9 mg/dL (8.4-10.2); CREATININE SERUM 0.9 mg/dL (0.6-1.4); GLOM FILT RATE Estimated 58.8 mL/min (>60); MAGNESIUM 1.4 mg/dL (1.6-3.0); PROTEIN TOTAL SERUM 6.5 g/dL (6.0-8.3)
[2016-12-12 08:02] LABS: URINE SOURCE CATH
[2016-12-12 08:03] LABS: POC - CKMB <1.0 ng/mL (0.0-7.9); POC - TROPONIN <0.05 ng/mL (<=0.05)
[2016-12-12 08:12] LABS: POTASSIUM 2.8 mmol/L (3.5-5.1)
[2016-12-12 10:37] LABS: POC - CKMB <1.0 ng/mL (0.0-7.9); POC - TROPONIN <0.05 ng/mL (<=0.05)
[2016-12-13 05:24] LABS: HEMATOCRIT 37.2 % (35.0-45.0); HEMOGLOBIN 12.3 gm/dL (12.0-16.0); MEAN CELL VOLUME 90.7 FL (83-96); MEAN CORPUSCULAR HEMOGLOBIN 30.1 PG (28-34); MEAN CORPUSCULAR HGB CONC 33.2 g/dL (30-36); MEAN PLATELET VOLUME 8.4 FL (6.5-11.5); RED BLOOD COUNT 4.1 X10e (3.90-5.30); RED CELL DISTRIBUTION WIDTH 13.3 % (11.0-15.5)
[2016-12-13 06:15] LABS: BUN/CREATININE RATIO 21.25; CALCIUM SERUM 8.8 mg/dL (8.4-10.2); CREATININE SERUM 0.8 mg/dL (0.6-1.4); GLOM FILT RATE Estimated 67.8 mL/min (>60); POTASSIUM 3.8 mmol/L (3.5-5.1)
[2016-12-14 05:21] LABS: HEMATOCRIT 37.3 % (35.0-45.0); HEMOGLOBIN 12.5 gm/dL (12.0-16.0); MEAN CELL VOLUME 89.5 FL (83-96); MEAN CORPUSCULAR HEMOGLOBIN 29.9 PG (28-34); MEAN CORPUSCULAR HGB CONC 33.5 g/dL (30-36); MEAN PLATELET VOLUME 9.7 FL (6.5-11.5); RED BLOOD COUNT 4.17 X10e (3.90-5.30); RED CELL DISTRIBUTION WIDTH 13.3 % (11.0-15.5); WHITE BLOOD COUNT 14.7 X10e3 (4.0-10.5)
[2016-12-14 06:07] LABS: CREATININE SERUM 0.7 mg/dL (0.6-1.4); GLOM FILT RATE Estimated 79.6 mL/min (>60); MAGNESIUM 1.5 mg/dL (1.6-3.0); POTASSIUM 4.1 mmol/L (3.5-5.1)
[2016-12-15 05:33] LABS: HEMATOCRIT 36.8 % (35.0-45.0); MEAN CELL VOLUME 90.4 FL (83-96); MEAN CORPUSCULAR HEMOGLOBIN 29.4 PG (28-34); MEAN CORPUSCULAR HGB CONC 32.5 g/dL (30-36); MEAN PLATELET VOLUME 9.7 FL (6.5-11.5); RED BLOOD COUNT 4.06 X10e (3.90-5.30); WHITE BLOOD COUNT 13.8 X10e3 (4.0-10.5)
[2016-12-15 05:58] LABS: BUN/CREATININE RATIO 26.66; CALCIUM SERUM 8.8 mg/dL (8.4-10.2); CREATININE SERUM 0.6 mg/dL (0.6-1.4); GLOM FILT RATE Estimated 83.7 mL/min (>60); MAGNESIUM 1.8 mg/dL (1.6-3.0); POTASSIUM 3.7 mmol/L (3.5-5.1)
[2016-12-16 07:44] LABS: HEMATOCRIT 37.9 % (35.0-45.0); HEMOGLOBIN 12.2 gm/dL (12.0-16.0); MEAN CELL VOLUME 90.9 FL (83-96); MEAN CORPUSCULAR HEMOGLOBIN 29.3 PG (28-34); MEAN CORPUSCULAR HGB CONC 32.2 g/dL (30-36); MEAN PLATELET VOLUME 9.4 FL (6.5-11.5); RED BLOOD COUNT 4.17 X10e (3.90-5.30); RED CELL DISTRIBUTION WIDTH 13.4 % (11.0-15.5); WHITE BLOOD COUNT 11.4 X10e3 (4.0-10.5)
[2016-12-16 08:08] LABS: BUN/CREATININE RATIO 25.71; CALCIUM SERUM 9.2 mg/dL (8.4-10.2); CREATININE SERUM 0.7 mg/dL (0.6-1.4); GLOM FILT RATE Estimated 79.6 mL/min (>60); MAGNESIUM 1.7 mg/dL (1.6-3.0); POTASSIUM 4.5 mmol/L (3.5-5.1)
[2016-12-16] MEDS ORDERED: PACERONE PO ×2 (12:34→12:35)
[2016-12-16] MEDS ORDERED: ACETAMINOPHEN PO (12:36)
[2016-12-16] MEDS ORDERED: LOPRESSOR PO (12:37)
[2016-12-16] MEDS ORDERED: ELIQUIS2.5 MG PO (12:37)
[2016-12-16] MEDS ORDERED: VANTIN200 MG PO (12:39)
== END 2016-12-16 18:19 | disposition home health service (06) | DRG 689 ==
LOC: CED 05:38 → C5C 08:52 → CED 09:23 → C5C 09:23
PROVIDERS: Emergency Medicine; Family Medicine; Nurse Practitioner
PROC: B246YZZ Ultrasonography of Right and Left Heart using Other Contrast (ICD-10-PCS; principal; 2016-12-13)
DX: N39.0 Urinary tract infection, site not specified (principal); G92 Toxic encephalopathy; I48.91 Unspecified atrial fibrillation; E11.9 Type 2 diabetes mellitus without complications; E87.1 Hypo-osmolality and hyponatremia; I08.1 Rheumatic disorders of both mitral and tricuspid valves; B96.20 Unspecified Escherichia coli [E. coli] as the cause of diseases classified elsewhere; I10 Essential (primary) hypertension; E78.5 Hyperlipidemia, unspecified; Z86.718 Personal history of other venous thrombosis and embolism; Z87.891 Personal history of nicotine dependence; R42 Dizziness and giddiness; E87.6 Hypokalemia; Z90.49 Acquired absence of other specified parts of digestive tract; Z98.49 Cataract extraction status, unspecified eye; W01.0XXA Fall on same level from slipping, tripping and stumbling without subsequent striking against object, initial encounter; Y92.010 Kitchen of single-family (private) house as the place of occurrence of the external cause; Z79.4 Long term (current) use of insulin; M19.90 Unspecified osteoarthritis, unspecified site; Z88.2 Allergy status to sulfonamides
CPT/HCPCS: 70450; 71010; 73610; 73700; 74000; 80048; 80061; 80076; 81003; 82553; 82607; 82947; 83036; 83735; 84443; 84484; 84550; 85025; 85027; 85610; 85730; 87086; 87088; 87186; 93005; 93306; 93971; 96365; 96375; 97116; 97163; 97166; 97530; 97535; 99285; G8978-GP; G8979-GP; G8987-GO; G8988-GO; J0282; J0696; J1650; J1815; J2405; J3473; J3475